=== PATIENT | female | born 1985 ===

== ENCOUNTER 2017-03-21 07:52 | Inpatient (IN) | payer OTHER ==
[2017-03-21 08:19] VITALS: BMI 32.5
[2017-03-21] MEDS ORDERED: Lactated Ringer's 1,000 ML IV SCH ×2 (08:30)
[2017-03-21 08:45] LABS: BASO % 0.3 % (0.0-2.0); EOS % 0.2 % (0.0-4.0); HEMOGLOBIN 12.7 g/dL (11.0-16.0); LYMPH # 1.4 K/uL (1.0-4.3); LYMPH % 14.4 % (20.0-40.0); MEAN CORPUSCULAR HEMOGLOBIN 31.3 pg (27.0-31.0); MEAN PLATELET VOLUME 9.9 fL (7.2-11.7); MONO # 0.5 K/uL (0.0-0.8); MONO % 4.6 % (0.0-10.0); NEUT # 8.1 K/uL (1.8-7.0); NEUT % 80.5 % (50.0-75.0); RBC 4.05 Mil/uL (3.80-5.20); RED CELL DISTRIBUTION WIDTH 13.7 % (11.5-14.5)
[2017-03-21 08:52] LABS: SQUAMOUS EPITHIAL 81 /hpf (0-5); URINE BACTERIA FEW (<OCC); URINE BILIRUBIN NEGATIVE (NEGATIVE); URINE BLOOD NEGATIVE (NEGATIVE); URINE CLARITY Hazy (Clear); URINE COLOR Yellow (YELLOW); URINE GLUCOSE (UA) NORMAL (Normal); URINE LEUKOCYTE ESTERASE 3+ Leu/uL (Negative); URINE NITRATE NEGATIVE (NEGATIVE); URINE PROTEIN NEGATIVE (NEGATIVE); URINE UROBILINOGEN NORMAL mg/dL (0.2-1.0)
--- NOTE | 2017-03-21 08:59 | OBHP ---
Datetime: 03/21/2017 08:26 IP Adm Impression: Term, intrauterine ; Active labor; Intact Membranes IP Admit Plan: Admit to unit; Initiate labor protocol Admit Comment, IP Provider: 31 y.o. , LMP MALU 03/25/17, EGA 39w 3d, c/o ctx since 0415 hours; pain scale 10/10. (+) AFM; denies LOF, VB. 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 Currently taking. No other issues . P OB: 2014, x 1, female, 7lb 7oz, [facility]; no complications. 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 (+) GC - age 20s. 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 PMH: denies PSH: 2010, removal of lipoma from her back NKDA Meds: PNV; acyclovir Soc Hx: denies tobacco, illicit drug or EtOH use. Live with her daughter. 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 FOB "not really involved" P.E.: as above. WD in pain with contractions. Awake, alert, oriented to time, person and place. C ooperative. Assessment: 31 y.o. P1, 39w 3d, active labor. GBS (-). HSV2 (+) with recent outbreak -on therapy; no lesions. Category 1 tracing. Clinically stable. Plan: 1) Admit 2) NPO 3) IVFs 4) Admission labs 5) Continuous EFM 6) Epidural 7) Anticipate vaginal delivery Pelvic Type - PN: Adequate Extremities - PN: Normal Abdomen - PN: Normal Back - PN: Normal Breast - PN: Not Done Lungs - PN: Normal Heart - PN: Normal Thyroid - PN: Not Done Neurologic - PN: Normal HEENT - PN: Normal General - PN: Normal Weight - Estimated: 3677 Presentation-Admit: Vertex FHR - Baseline A Provider: 150 Membranes, Provider: Intact Contraction Comments Provider: 2-3 Comments, ACOG Physical Exam: Abdomen: Gravid. Firm with contractions. Fundal height 40 cm Perineum: no lesions All other systems reviewed and are negative Gestation - Est Wks by US: 39w 3d IP Hx Assessment: The History has been Reviewed and is Current Vital Signs Provider: Reviewed; Within Normal Limits IP Indication for Induction: Not Applicable IP Chief Complaint: Uterine contractions NICHD Variability Prov Fetus A: Moderate 6-25bpm FHR Category Provider Fetus A: Category I NICHD Decel Fetus A IP Provider: None Dilatation, Provider: 6-7 Effacement, Provider: 90 Station, Provider: -3 Genitourinary Exam: Normal DTRs - PN: Not Done
[2017-03-21] MEDS ORDERED: Bupivacaine 0.125%/FentaNYL 200 ML EPI ONE (09:05)
--- NOTE | 2017-03-21 09:55 | OBPN ---
Datetime: 03/21/2017 09:08 IP Progress Plan: Continue present management; Anesthesia consult; Anticipate Vaginal Delivery Membranes, Provider: Intact Contraction Comments Provider: 3-4 FHR - Baseline A Provider: 140 Gestation - Est Wks by US: 39w 3d Presentation-Admit: Vertex IP Progress Note Comment: Patient c/o urge to push V.E. : as above. Assessment: 31 yo P1, 39w 3d, active labor. Category 1 tracing. Clinically stable. Plan: 1) Epidural 2) Possible pitocin 3) Anticipate vaginal delivery NICHD Accel Fetus A IP Provider: 90 FHR Category Provider Fetus A: Category I NICHD Variability Prov Fetus A: Moderate 6-25bpm Dilatation, Provider: 7 Effacement, Provider: 90 Station, Provider: -2 NICHD Decel Fetus A IP Provider: None Datetime: 03/21/2017 08:26 Weight - Estimated: 3677 Vital Signs Provider: Reviewed; Within Normal Limits
[2017-03-21] MEDS ORDERED: Oxytocin 30 UNIT 30 UNITS/500 ML BAG IV PRN (10:33)
[2017-03-21] MEDS ORDERED: Lidocaine 2% Inj (20ml) ONE (11:38)
[2017-03-21 12:24] LABS: ALBUMIN 3.5 g/dL (3.5-5.0)
[2017-03-21 12:27] LABS: ALT/SGPT 30 U/L (9-52); AST/SGOT 28 U/L (14-36); BLOOD UREA NITROGEN 8 mg/dL (7-17); GFR AFRICAN-AMERICAN > 60; GFR NON-AFRICAN AMERICAN > 60
[2017-03-21 12:28] LABS: CALCIUM 8.8 mg/dl (8.6-10.4)
[2017-03-21] MEDS ORDERED: Acetaminophen-Codeine 300/30 mg Tab PO PRN (13:33)
[2017-03-21] MEDS ORDERED: Benzocaine/Menthol 20%-0.5% Topical Spray (60 ml) TOP PRN ×2 (13:33→14:02)
--- NOTE | 2017-03-21 19:45 | OBDS ---
DELIVERY PERSONNEL Delivery Doctor: Patricia Zhang MD Wind Up Worker: Shefali Bose RN MATERNAL INFORMATION Delivery Anesthesia: Epidural Medications in Delivery: pitocin 20 units Estimated Blood Loss (ml): 200 Placenta Cultured: No Maternal Complications: None RN Comments: skin to skin within 5 minutes of delivery Provider Comments: Uncomplicated vaginal delivery of live male infant, direct OA, Apgars 9/9, weight 8lb 11 oz, over intact perineum. Umbilical cord doubly clamped and cut; on mother's abdomen. Spontaneous delivery of placenta: grossly intact, 3 vessels present. Examination of cervix, vagina, perineum - lacerations as above; repaired as above. Hemostasis assu red. Patient and infant bonding; both in stable condition LABOR SUMMARY EDC: 03/25/2017 00:00 No. Babies in Womb: 1 Attempted: No Labor Anesthesia: Epidural LABOR INFORMATION Reason for Induction: Not Applicable Onset of Labor: 03/21/2017 04:30 Complete Dilatation: 03/21/2017 11:33 Other Ripening Agents: n/a Oxytocin: Augmentation Group B Beta Strep: Negative Antibiotics # of Doses: 0 Reason Steroids Not Administered: Not Applicable MEMBRANES Membranes Rupture Method: Artificial Rupture of Membranes: 03/21/2017 12:21 Length of Rupture (hrs): 0.65 Amniotic Fluid Color: Clear Amniotic Fluid Amount: Moderate Amniotic Fluid Odor: Normal STAGES OF LABOR Stage 1 hrs: 7 Stage 1 min: 3 Stage 2 hrs: 1 Stage 2 min: 27 Stage 3 hrs: 0 Stage 3 min: 13 Total Time in Labor hrs: 8 Total Time in Labor min: 43 VAGINAL DELIVERY Episiotomy: Left Mediolateral Laceration Extension: First Degree Laceration Type: Vaginal Other Laceration: 2 degree perineal Laceration Repair: Yes Laceration Repair Note: 2-0 chromic in routine fashion Hemostasis assured Patient tolerated procedure well. Initial Vag Sponge Count: 10 Final Vag Sponge Count: 10 Initial Vag Sharps Count: 2 Final Vag Sharps Count: 2 Sponge Count Correct: Yes; Vaginal Sweep Performed Sharps Count Correct: Yes Count Comment: Correct BABY A INFORMATION Infant Delivery Date/Time: 03/21/2017 13:00 Method of Delivery: Vaginal Born in Route : No : N/A Forceps: N/A Vacuum Extraction: N/A Shoulder Dystocia : No SHOULDER DYSTOCIA BABY A Infant Delivery Date/Time: 03/21/2017 13:00 PRESENTATION/POSITION BABY A Presentation: Cephalic Cephalic Presentation: Vertex Vertex Position: Right Occipital Anterior Breech Presentation: N/A PLACENTA INFORMATION BABY A Placenta Delivery Time : 03/21/2017 13:13 Placenta Method of Delivery: Spontaneous Placenta Status: Delivered SCORES BABY A Heart Rate 1 min: >100 bpm Resp Effort 1 min: Good Cry Reflex Irritability 1 min: Cough or Sneeze or Pulls Away Muscle Tone 1 min: Active Motion Color 1 min: Body [place], Extremities Blue SCORE 1 MIN: 9 Heart Rate 5 min: >100 bpm Resp Effort 5 min: Good Cry Reflex Irritability 5 min: Cough or Sneeze or Pulls Away Muscle Tone 5 min: Active Motion Color 5 min: Body [place], Extremities Blue SCORE 5 MIN: 9 INFORMATION BABY A Gestational Age at Delivery: 39.3 Gestational Status: Term Infant Outcome : Liveborn Condition : Stable Sex: Male IDENTIFICATION/MEDS BABY A ID Band Number: [id number] ID Band Location: Left Leg; Left Arm Sensor Applied: Yes Sensor Number: [id number] Sensor Location : Cord Clamp Vitamin K Given : Aquamephyton 1 mg IM Erythromycin Given: Given Both Eyes WEIGHT/LENGTH BABY A Infant Birthweight (gms): 3930 Infant Weight (lb): 8 Weight (oz): 11 Length Inches: 20.00 Length cms: 50.8 CORD INFORMATION BABY A No. Cord Vessels: 3 Nuchal Cord : N/A Nuchal Cord Other: 0 True Knot: 0 Cord Blood Taken: Yes Infant Suction: Mouth ASSESSMENT BABY A Complications: None Physical Findings at Delivery: Within Normal Limits Infant Respirations: Appears Normal Help Desk Technician/ALS Called : No Care By: yosvany messer Transferred To: Remains with Mother
[2017-03-22 08:07] VITALS: RESP 20
[2017-03-22 08:09] LABS: HEMOGLOBIN 11.4 g/dL (11.0-16.0); MEAN CELL VOLUME 94.7 fL (81.0-99.0); MEAN CORPUSCULAR HEMOGLOBIN 30.7 pg (27.0-31.0); MEAN CORPUSCULAR HGB CONC 32.4 g/dL (33.0-37.0); MEAN PLATELET VOLUME 9.9 fL (7.2-11.7); RBC 3.71 Mil/uL (3.80-5.20); WHITE BLOOD COUNT 11.9 K/uL (4.8-10.8)
--- NOTE | 2017-03-22 08:23 | OBPPN ---
Datetime: 03/22/2017 08:20 PP Pain Prov: Within normal limits PP Nausea Prov: Denies PP Flatus Prov: Yes PP BM Prov: No PP Breasts Prov: Normal PP Heart Prov: Normal PP Lungs Prov: Normal PP Abdomen/Uterus Prov: Normal PP Lochia Prov: Normal PP Vulva/Perineum Prov: Normal PP CVA Tenderness Prov: Normal PP Extremities Prov: Normal PP C/S Incision Prov: Not Applicable PP Progress Prov: Normal PP Comments Phys Exam Prov: GEN NAD, AAOx 3 BREAST: NT, Non engorbed b/l CVS: RRR, +S1/S2 RESP: CTAB/l ABD: soft, NT/ND, no guarding, no rebound tenderness, no rigidity Fuduns: Firm, at level of umbilicus, minimal lochia, non foul smelling EXT: negative homans sign, negative calf tenderness PP Impression Prov: Normal progression PP Plan Prov: Continue present management IP PP Procedures: None Vital Signs Provider PP: Reviewed; Within Normal Limits
[2017-03-22] MEDS: Multiple Vitamins Tab PO SCH (11:29)
[2017-03-23] MEDS: Multiple Vitamins Tab PO SCH (09:01)
--- NOTE | 2017-03-23 11:30 | OBDCSUM ---
Datetime: 03/23/2017 07:59 Discharged to, Provider: Home Follow up at, Provider: [facility] Disch Instr Activity: Normal activity Disch Instr Diet: Regular Discharge Diet restrict Prov: none Discharge Instructions, Provider: Routine instructions given Discharge Diagnosis, Provider: Term Delivered Discharge Time: 03/23/2017 18:00 Follow up in weeks, Provider: 6 weeks Disch Referrals: None Contraception discussed, Prov: Yes Disch Activity Restrictions: No exercising; No lifting; No sexual activity; Nothing in vagina - Inte rcourse, tampons, douche Discharge Comment, Provider: precautions given if fever, chills, nause, vomiting, CP, SOB< heavy bleeding, pain go to ER and call your doctor Contraception after Delivery: Not Planning to Use
--- NOTE | 2017-03-23 11:30 | OBPPN ---
Datetime: 03/23/2017 11:27 PP Pain Prov: Within normal limits PP Nausea Prov: Denies PP Flatus Prov: Yes PP BM Prov: Yes PP Breasts Prov: Normal PP Heart Prov: Normal PP Lungs Prov: Normal PP Abdomen/Uterus Prov: Normal PP Lochia Prov: Normal PP Vulva/Perineum Prov: Normal PP CVA Tenderness Prov: Normal PP Extremities Prov: Normal PP C/S Incision Prov: Not Applicable PP Progress Prov: Normal PP Comments Phys Exam Prov: see below PP Impression Prov: Normal progression PP Plan Prov: Discharge PP Progress Note Prov: pt seen and examined and reports pain is controlled with medication. pt is am bualting, voiding, breast feeding, denies heavy bleeding, denies fevers, chills, nausea, vomiting, CP , SOB. Pt is passing flatus, tolerating regular diet. Pt denies any lightheadness, dizzyness. vss GEN NAD, AAOx 3 BREAST: NT, Non engorbed b/l CVS: RRR, +S1/S2 RESP: CTAB/l ABD: soft, NT/ND, no guarding, no rebound tenderness, no rigidity Fuduns: Firm, below level of umbilicus, minimal lochia, non foul smelling EXT: negative homans sign, negative calf tenderness a/p s/p PPD #2 doing well, stable for discharge -d/c home -Return to clinic 6 weeks -bleeding/pain precautions given IP PP Procedures: None Vital Signs Provider PP: Reviewed; Within Normal Limits
[2017-03-23 16:08] VITALS: BP 126/87; PULSE 100; TEMP 97.9; O2SAT 97
== END 2017-03-23 22:00 | disposition home or self-care (01) | DRG 372 ==
LOC: C.EROB 07:52 → C.4D 08:16 → C.4M 15:35
PROVIDERS: ADMIT Obstetrics & Gynecology; ATTEND Obstetrics & Gynecology
PROC: 10E0XZZ Delivery of Products of Conception, External Approach (ICD-10-PCS; principal; 2017-03-21)
PROC: 0KQM0ZZ Repair Perineum Muscle, Open Approach (ICD-10-PCS; 2017-03-21)
PROC: 10907ZC Drainage of Amniotic Fluid, Therapeutic from Products of Conception, Via Natural or Artificial Opening (ICD-10-PCS; 2017-03-21)
DX: O98.32 Other infections with a predominantly sexual mode of transmission complicating childbirth (principal); A60.00 Herpesviral infection of urogenital system, unspecified; O70.1 Second degree perineal laceration during delivery; Z37.0 Single live birth; Z3A.39 39 weeks gestation of pregnancy